=== PATIENT | female | born 1965 | race Caucasian/White ===

== ENCOUNTER 2021-03-26 13:55 | Emergency (ER) | payer OTHER ==
[~2021-03-26] VITALS: Ht 170.2 cm; Wt 74.8 kg
--- NOTE | 2021-03-26 14:10 | NUR ---
The patient bibs for abscess to R gluteus x 3 days. Denies pain. In room air and denies SOB. Respiration regular and unlabored. Will continue to monitor the patient.
[2021-03-26] MEDS ORDERED: CEPH500C2 PO (14:47)
[2021-03-26] MEDS ORDERED: SULF1TAB47 PO (14:47)
[2021-03-26] MEDS ORDERED: IBUP-1955 PO (14:47)
--- NOTE | 2021-03-26 15:20 | NUR ---
Patient discharged to home in stable condition. Written and verbal after care instructions given. Patient verbalizes understanding of instruction.
[2021-03-26 15:21] VITALS: BP 124/63
== END 2021-03-26 15:21 | disposition home or self-care (01) ==
LOC: ER 13:59
DX: L03.317 Cellulitis of buttock (principal)